=== PATIENT | male | born 1935 | race Caucasian/White ===

== ENCOUNTER → 2018-04-16 | Outpatient (CLI) | payer OTHER ==
[2018-04-16 12:42] LABS: ABG BASE EXCESS 2.6 MMOL/L (-2.5-2.5); ABG OXYGEN SATURATION 91 % (94-100); ABG PCO2 43 MMHG (35-45); ABG PH 7.41 (7.37-7.43); ABG PO2 54 MMHG (79-93); ABG TCO2 28.6 MMOL/L (21.0-31.0)
[2018-04-16 12:44] LABS: ALLENS TEST POSITIVE; PATIENT TEMP 95.6; VENTILATOR NO
== END ==
LOC: RT 11:50
PROVIDERS: ATTEND Nurse Practitioner Family
DX: J30.9 Allergic rhinitis, unspecified (principal); R06.89 Other abnormalities of breathing; R06.00 Dyspnea, unspecified; R05 Cough
CPT/HCPCS: 36600; 82805

== ENCOUNTER → 2018-05-27 | Outpatient (CLI) | payer OTHER ==
[~2018-05-27] MED LIST: HOLD METFORMIN - RECEIVED CONTRAST 20 ML VIAL IV SCH; IOHEXOL 350 MG/ML 100 ML (OMNIPAQUE 350) VIAL IV ONE; RT-ALBUTEROL SULF 2.5 MG/3 ML PRE-MIX VIAL INH ONE
[2018-05-27 10:30] LABS: BUN/CREATININE RATIO 13; CREATININE SERUM 1.08 MG/DL (0.60-1.30); GFR ESTIMATED > 60
--- NOTE | 2018-05-27 12:46 | Diagnostic Imaging Report ---
PROCEDURE: CT chest with contrast only. TECHNIQUE: Multiple contiguous axial images were obtained through the chest after administration of intravenous contrast. Auto Exposure Controls were utilized during the CT exam to meet ALARA standards for radiation dose reduction. INDICATION: Shortness of air and difficulty breathing. COMPARISON: No prior studies are available for comparison. FINDINGS: No axillary, hilar, or mediastinal lymphadenopathy is seen. No pericardial or pleural fluid is identified. Ascending thoracic aorta is slightly prominent at 4.3 cm in AP diameter. No dissection is identified. Parenchymal evaluation demonstrates severe emphysematous changes throughout both lungs, most marked involving the upper lobes. There are calcified granulomas in the right lower lobe. No noncalcified pulmonary nodules or masses are seen. Upper abdomen is unremarkable. IMPRESSION: Severe emphysematous changes. No discrete noncalcified mass or thoracic lymphadenopathy is detected. Dictated by: Dictated on workstation # [id number]
== END ==
LOC: RT 09:08
PROVIDERS: ATTEND Nurse Practitioner Family
DX: R06.89 Other abnormalities of breathing (principal); R05 Cough; R06.00 Dyspnea, unspecified; J30.9 Allergic rhinitis, unspecified; J43.9 Emphysema, unspecified
CPT/HCPCS: 36415; 71260; 82565; 84520; 94060; 94726; 94729

== ENCOUNTER → 2020-09-08 | Outpatient (CLI) | payer MEDICARE, OTHER ==
[~2020-09-08] MED LIST changes: -HOLD METFORMIN - RECEIVED CONTRAST 20 ML VIAL IV SCH; -IOHEXOL 350 MG/ML 100 ML (OMNIPAQUE 350) VIAL IV ONE
== END ==
LOC: RT 11:00
PROVIDERS: ATTEND Nurse Practitioner Family
DX: J45.909 Unspecified asthma, uncomplicated (principal)
CPT/HCPCS: 94060; 94726; 94729